=== PATIENT | female | born 1990 | race American Indian/Alaskan Native ===

== ENCOUNTER 2019-07-28 14:35 | Emergency (ER) | payer OTHER ==
--- NOTE | 2019-07-28 14:54 | Emergency Department Report ---
Blank Doc - Documentation Documentation: 28-year-old female that presents with site bleeding and pain. This initial assessment/diagnostic orders/clinical plan/treatment(s) is/are subject to change based on patient's health status, clinical progression and re- assessment by fellow clinical providers in the ED. Further treatment and workup at subsequent clinical providers discretion. Patient/guardians urged not to elope from the ED as their condition may be serious if not clinically assessed and managed. Initial orders include: 1- Patient sent to MAIN ED for further evaluation and treatment 2- labs 3- UA
[2019-07-28] MEDS ORDERED: ONDANSETRON 4 MG/2 ML INJ IV ONE (16:52)
[2019-07-28] MEDS ORDERED: MORPHINE 4 MG/1 ML INJ IV ONE (16:52)
--- NOTE | 2019-07-28 17:05 | Emergency Department Report ---
ED Abdominal Pain HPI - General Chief Complaint: Abdominal Pain Stated Complaint: ISSUES/BLEEDING Time Seen by Provider: 07/28/19 14:52 Source: patient Mode of arrival: Wheelchair Limitations: No Limitations - History of Present Illness Initial Comments: Patient is a 28-year-old female presents emergency room with complaints of a C- section incision issue that occurred just [employer]. She states earlier today she was feeling cramping sensation in her lower abdomen and then went to get out of bed to go to the bathroom and felt a pulling sensation and had bleeding present to her incision. She denies any purulent drainage, fever, vomiting. Patient had a performed on 07/21/19. She states that this is her third . She states her [employer] is Dr. Guillermina Julian. She denies any past medical history. She states she has allergy to penicillin. Severity scale (0 -10): 9 - Related Data Previous Rx's Medication Instructions Recorded Last Taken Type Ferrous Sulfate [Feosol 325 MG tab] 325 mg PO BID #30 tablet 07/21/19 Unknown Rx Ibuprofen [Motrin] 600 mg PO Q8H PRN #30 tablet 07/21/19 Unknown Rx oxyCODONE /ACETAMINOPHEN [Percocet 1 tab PO Q6HR PRN #30 tablet 07/21/19 Unknown Rx 5/325] oxyCODONE /ACETAMINOPHEN [Percocet 1 tab PO Q6HR PRN #30 tablet 07/23/19 Unknown Rx 5/325] cephALEXin [Keflex] 500 mg PO QID 7 Days #56 cap 07/28/19 Unknown Rx Allergies Allergy/AdvReac Type Severity Reaction Status Date / Time No Known Allergies Allergy Unverified 07/21/19 10:21 ED Review of Systems ROS: Stated complaint: ISSUES/BLEEDING Other details as noted in HPI Comment: All other systems reviewed and negative ED Past Medical Hx - Past Medical History Previous Medical History?: No Hx Hypertension: No Hx Congestive Heart Failure: No Hx Diabetes: No Hx Deep Vein Thrombosis: No Hx Renal Disease: No Hx Sickle Cell Disease: No Hx Seizures: No Hx Asthma: No Hx COPD: No Hx HIV: No - Surgical History Past Surgical History?: Yes Additional Surgical History: - Social History Smoking Status: Never Smoker Substance Use Type: None - Medications Home Medications: Home Medications Medication Instructions Recorded Confirmed Last Taken Type Ferrous Sulfate [Feosol 325 MG tab] 325 mg PO BID #30 tablet 07/21/19 Unknown Rx Ibuprofen [Motrin] 600 mg PO Q8H PRN #30 tablet 07/21/19 Unknown Rx oxyCODONE /ACETAMINOPHEN [Percocet 1 tab PO Q6HR PRN #30 tablet 07/21/19 Unknown Rx 5/325] oxyCODONE /ACETAMINOPHEN [Percocet 1 tab PO Q6HR PRN #30 tablet 07/23/19 Unknown Rx 5/325] cephALEXin [Keflex] 500 mg PO QID 7 Days #56 cap 07/28/19 Unknown Rx ED Physical Exam - General Limitations: No Limitations General appearance: alert, in no apparent distress - Head Head exam: Present: atraumatic, normocephalic - Eye Eye exam: Present: normal appearance - ENT ENT exam: Present: mucous membranes moist - GI/Abdominal GI/Abdominal exam: Present: other (4 cm area of wound dehescience present to the mid to left side of her incision, does not appear to be completely open, small amount of dried blood present, no active bleeding, no purulent drainage, no erythema, no increased warmth, mild TTP) - Neurological Exam Neurological exam: Present: alert, oriented X3 - Psychiatric Psychiatric exam: Present: normal affect, normal mood - Skin Skin exam: Present: warm, dry ED Course Vital Signs 07/28/19 07/28/19 07/28/19 14:45 17:10 17:11 Temperature 98.5 F Pulse Rate 89 86 Respiratory 20 20 20 Rate Blood Pressure 141/81 138/93 [Right] O2 Sat by Pulse 98 100 Oximetry 07/28/19 07/28/19 07/28/19 17:41 18:03 18:30 Temperature 98.7 F Pulse Rate 87 Respiratory 20 20 20 Rate Blood Pressure 141/84 [Right] O2 Sat by Pulse 100 Oximetry - Consultations Consultation #1: 07/28/19 17:[address] Guillermina Julian, [employer] and discussed wound dehiscence and bleeding, she recommends that if wound care is available today than to have them place a wound VAC if not then to place a wet-to-dry dressing and have patient change it 3 times a day and to have her follow up in office tomorrow (07/29/2019). ED Medical Decision Making - Lab Data Result diagrams: 07/28/19 16:52 07/28/19 16:52 Lab Results 07/28/19 07/28/19 07/28/19 Range/Units 16:52 16:52 17:00 WBC 12.0 H (4.5-11.0) K/mm3 RBC 3.90 (3.65-5.03) M/mm3 Hgb 10.4 (10.1-14.3) gm/dl Hct 32.9 (30.3-42.9) % MCV 84 (79-97) fl MCH 27 L (28-32) pg MCHC 32 (30-34) % RDW 15.6 H (13.2-15.2) % Plt Count 420 (140-440) K/mm3 Lymph % (Auto) 18.9 (13.4-35.0) % Dawson % (Auto) 6.1 (0.0-7.3) % Eos % (Auto) 1.5 (0.0-4.3) % Baso % (Auto) 1.4 (0.0-1.8) % Lymph # 2.3 (1.2-5.4) K/mm3 Dawson # 0.7 (0.0-0.8) K/mm3 Eos # 0.2 (0.0-0.4) K/mm3 Baso # 0.2 H (0.0-0.1) K/mm3 Seg Neutrophils % 72.1 H (40.0-70.0) % Seg Neutrophils # 8.6 H (1.8-7.7) K/mm3 Sodium 141 (137-145) mmol/L Potassium 4.3 (3.6-5.0) mmol/L Chloride 106.2 (98-107) mmol/L Carbon Dioxide 20 L (22-30) mmol/L Anion Gap 19 mmol/L BUN 10 (7-17) mg/dL Creatinine 0.7 (0.7-1.2) mg/dL Estimated GFR > 60 ml/min BUN/Creatinine Ratio 14 % Glucose 76 (65-100) mg/dL Calcium 8.8 (8.4-10.2) mg/dL Urine Color Yellow (Yellow) Urine Turbidity Clear (Clear) Urine pH 6.0 (5.0-7.0) Ur Specific [place] 1.012 (1.003-1.030) Urine Protein <15 mg/dl (Negative) mg/dL Urine Glucose (UA) Neg (Negative) mg/dL Urine Ketones Neg (Negative) mg/dL Urine Blood Lg (Negative) Urine Nitrite Neg (Negative) Urine Bilirubin Neg (Negative) Urine Urobilinogen < 2.0 (<2.0) mg/dL Ur Leukocyte Esterase Tr (Negative) Urine WBC (Auto) 3.0 (0.0-6.0) /HPF Urine RBC (Auto) 83.0 (0.0-6.0) /HPF U Epithel Cells (Auto) 1.0 (0-13.0) /HPF Urine Mucus Few /HPF - Medical Decision Making Patient is a 28-year-old female presents emergency room with complaints of a incision issue that occurred just [employer]. She states earlier today she was feeling cramping sensation in her lower abdomen and then went to get out of bed to go to the bathroom and felt a pulling sensation and had bleeding present to her incision. She denies any purulent drainage, fever, vomiting. Patient had a performed on 07/21/19. She states that this is her third C- section. She states her [employer] is Dr. Guillermina Julian. She denies any past medical history. She states she has allergy to penicillin. VSS. on exam: 4 cm area of wound dehescience present to the mid to left side of her incision, does not appear to be completely open, small amount of dried blood present, no active bleeding, no purulent drainage, no erythema, no increased warmth, mild TTP. Patient given pain medication and symptoms improved. spoke to Dr. Guillermina Julian, [employer] and discussed wound dehiscence and bleeding, she recommends that if wound care is available today than to have them place a wound VAC if not then to place a wet-to-dry dressing and have patient change it 3 times a day and to have her follow up in office tomorrow (07/29/2019). Wound care is not available, wet-to-dry dressing placed. Patient evaluated by Dr. Mccoy who examined patient's wound and agrees with plan and advised to start patient on antibiotics. pt given prescription for keflex. advised pt to please take medication as prescribed. continue taking your pain medication as prescribed by your doctor as needed. Please use wet-to-dry dressing. Please change dressing 3 times a day. Please follow-up with Dr. Guillermina Julian tomorrow morning (07/29/2019). Return to the emergency room for any new or worsening symptoms. Critical care attestation.: If time is entered above; I have spent that time in minutes in the direct care of this critically ill patient, excluding procedure time. ED Disposition Clinical Impression: Wound dehiscence, , condition Disposition: - TO HOME OR SELFCARE Is pt being admited?: No Does the pt Need Aspirin: No Condition: Stable Instructions: Acute Wound Care (ED), Wound Dehiscence (ED) Additional Instructions: Please take medication as prescribed. continue taking your pain medication as prescribed by your doctor as needed. Please use wet-to-dry dressing. Please change dressing 3 times a day. Please follow-up with Dr. Guillermina Julian tomorrow morning (07/29/2019). Return to the emergency room for any new or worsening symptoms. Prescriptions: cephALEXin [Keflex] 500 mg PO QID 7 Days #56 cap Referrals: GUILLERMINA JULIAN MD [Staff Physician] - 24 Hours Time of Disposition: 17:55 Print Language: CANADIAN
[2019-07-28 17:27] LABS: Basophils # (Auto) 0.2 K/mm3 (0.0-0.1); Basophils % (Auto) 1.4 % (0.0-1.8); Eosinophils # (Auto) 0.2 K/mm3 (0.0-0.4); Eosinophils % (Auto) 1.5 % (0.0-4.3); Hematocrit 32.9 % (30.3-42.9); Hemoglobin 10.4 gm/dl (10.1-14.3); Lymphocytes # (Auto) 2.3 K/mm3 (1.2-5.4); Lymphocytes % (Auto) 18.9 % (13.4-35.0); Mean Corpuscular HGB Conc 32 % (30-34); Mean Corpuscular Volume 84 fl (79-97); Monocytes # (Auto) 0.7 K/mm3 (0.0-0.8); Monocytes % (Auto) 6.1 % (0.0-7.3); Platelet Count 420 K/mm3 (140-440); Red Cell Distribution Width 15.6 % (13.2-15.2)
[2019-07-28 17:33] LABS: Bilirubin,Urine NEG (Negative); Blood,Urine LG (Negative); Color,Urine Yellow (Yellow); Mucus,Urine FEW /HPF; Protein,Urine <15 mg/dL mg/dL (Negative); Urobilinogen,Urine < 2.0 mg/dL (<2.0)
[2019-07-28 17:46] LABS: BUN/Creatinine Ratio 14; Blood Urea Nitrogen 10 mg/dL (7-17); Calcium 8.8 mg/dL (8.4-10.2); Hemolysis Index 59
[2019-07-28] MEDS ORDERED: HYDROmorphone 1 MG/1 ML INJ IV ONE (17:53)
[2019-07-28 19:09] VITALS: BP 141/84
== END 2019-07-28 19:20 | disposition home or self-care (01) ==
LOC: ED 14:35
DX: T81.31XA Disruption of external operation (surgical) wound, not elsewhere classified, initial encounter (principal); Y92.89 Other specified places as the place of occurrence of the external cause
CPT/HCPCS: 36415; 80048; 81001; 85025; 96374; 96375; 99284; J1170; J2270; J2405

== ENCOUNTER 2019-08-04 10:03 | Outpatient (CLI) | payer OTHER ==
[2019-08-04] MEDS ORDERED: LIDOCAINE (4%) 40 MG/ML TOPICAL SOLN 50 ML BOTTLE TP ONE (10:22)
[2019-08-04] MEDS ORDERED: LIDOCAINE (1%) 10 MG/1 ML VIAL 20 ML MDV INFILTRATI ONE (11:15)
== END 2019-08-04 10:04 | disposition home or self-care (01) ==
LOC: WOUND 10:03
PROVIDERS: ATTEND Surgery
DX: T81.31XA Disruption of external operation (surgical) wound, not elsewhere classified, initial encounter (principal); F17.210 Nicotine dependence, cigarettes, uncomplicated; Y83.8 Other surgical procedures as the cause of abnormal reaction of the patient, or of later complication, without mention of misadventure at the time of the procedure; Y92.89 Other specified places as the place of occurrence of the external cause
CPT/HCPCS: 10180; 87075; 87076; 87116; 87186; G0463; 99215

== ENCOUNTER 2019-08-11 10:46 | Outpatient (CLI) | payer OTHER ==
[2019-08-11] MEDS ORDERED: LIDOCAINE (4%) 40 MG/ML TOPICAL SOLN 50 ML BOTTLE TP ONE (11:00)
== END 2019-08-11 10:47 | disposition home or self-care (01) ==
LOC: WOUND 10:46
PROVIDERS: ATTEND Surgery
DX: T81.89XD Other complications of procedures, not elsewhere classified, subsequent encounter (principal); F17.200 Nicotine dependence, unspecified, uncomplicated; X58.XXXD Exposure to other specified factors, subsequent encounter
CPT/HCPCS: 97605

== ENCOUNTER 2019-08-14 14:04 | Outpatient (CLI) | payer OTHER | END 2019-08-14 14:05 | disposition home or self-care (01) | LOC: WOUND 14:04 | PROVIDERS: ATTEND Surgery | DX: T81.89XD Other complications of procedures, not elsewhere classified, subsequent encounter (principal); F17.200 Nicotine dependence, unspecified, uncomplicated; X58.XXXD Exposure to other specified factors, subsequent encounter | CPT/HCPCS: 97605 ==

== ENCOUNTER 2019-08-18 10:37 | Outpatient (CLI) | payer OTHER ==
[2019-08-18] MEDS ORDERED: LIDOCAINE (4%) 40 MG/ML TOPICAL SOLN 50 ML BOTTLE TP ONE (11:00)
== END 2019-08-18 10:38 | disposition home or self-care (01) ==
LOC: WOUND 10:37
PROVIDERS: ATTEND Surgery
DX: T81.31XD Disruption of external operation (surgical) wound, not elsewhere classified, subsequent encounter (principal); F17.210 Nicotine dependence, cigarettes, uncomplicated; Y83.8 Other surgical procedures as the cause of abnormal reaction of the patient, or of later complication, without mention of misadventure at the time of the procedure
CPT/HCPCS: 97605

== ENCOUNTER 2019-08-21 13:57 | Outpatient (CLI) | payer OTHER | END 2019-08-21 13:58 | disposition home or self-care (01) | LOC: WOUND 13:57 | PROVIDERS: ATTEND Surgery | DX: T81.31XD Disruption of external operation (surgical) wound, not elsewhere classified, subsequent encounter (principal); F17.210 Nicotine dependence, cigarettes, uncomplicated; Y83.8 Other surgical procedures as the cause of abnormal reaction of the patient, or of later complication, without mention of misadventure at the time of the procedure | CPT/HCPCS: 97605 ==

== ENCOUNTER 2019-08-25 10:26 | Outpatient (CLI) | payer OTHER ==
[2019-08-25] MEDS ORDERED: LIDOCAINE (4%) 40 MG/ML TOPICAL SOLN 50 ML BOTTLE TP ONE (11:00)
== END 2019-08-25 10:27 | disposition home or self-care (01) ==
LOC: WOUND 10:26
PROVIDERS: ATTEND Surgery
DX: T81.31XD Disruption of external operation (surgical) wound, not elsewhere classified, subsequent encounter (principal); F17.210 Nicotine dependence, cigarettes, uncomplicated; Y83.8 Other surgical procedures as the cause of abnormal reaction of the patient, or of later complication, without mention of misadventure at the time of the procedure

== ENCOUNTER 2019-09-01 10:34 | Outpatient (CLI) | payer OTHER ==
[2019-09-01] MEDS ORDERED: LIDOCAINE (4%) 40 MG/ML TOPICAL SOLN 50 ML BOTTLE TP ONE (10:35)
[2019-09-01] MEDS ORDERED: SILVER NITRATE APPLICATOR 1 EA TP ONE (13:57)
== END 2019-09-01 10:35 | disposition home or self-care (01) ==
LOC: WOUND 10:34
PROVIDERS: ATTEND Surgery
DX: T81.31XD Disruption of external operation (surgical) wound, not elsewhere classified, subsequent encounter (principal); F17.210 Nicotine dependence, cigarettes, uncomplicated; Y83.8 Other surgical procedures as the cause of abnormal reaction of the patient, or of later complication, without mention of misadventure at the time of the procedure
CPT/HCPCS: 17250

== ENCOUNTER 2019-09-15 10:25 | Outpatient (CLI) | payer OTHER | END 2019-09-15 10:26 | disposition home or self-care (01) | LOC: WOUND 10:25 | PROVIDERS: ATTEND Surgery | DX: T81.31XD Disruption of external operation (surgical) wound, not elsewhere classified, subsequent encounter (principal); F17.210 Nicotine dependence, cigarettes, uncomplicated; Y83.8 Other surgical procedures as the cause of abnormal reaction of the patient, or of later complication, without mention of misadventure at the time of the procedure | CPT/HCPCS: 99214; G0463 ==

== ENCOUNTER 2019-09-29 10:22 | Outpatient (CLI) | payer OTHER | END 2019-09-29 10:23 | disposition home or self-care (01) | LOC: WOUND 10:22 | PROVIDERS: ATTEND Surgery | DX: T81.31XD Disruption of external operation (surgical) wound, not elsewhere classified, subsequent encounter (principal); F17.210 Nicotine dependence, cigarettes, uncomplicated; Y83.8 Other surgical procedures as the cause of abnormal reaction of the patient, or of later complication, without mention of misadventure at the time of the procedure | CPT/HCPCS: 99212; G0463 ==